=== PATIENT | male | born 1960 | race Asian ===

== ENCOUNTER 2020-10-29 13:42 | Emergency (ER) | payer OTHER ==
[2020-10-29 14:34] VITALS: BMI 21.9
[2020-10-29 15:18] LABS: EPI CELLS 2 /uL (0-25.1); HYALINE CASTS 1 /uL (0-3.1); URINE APPEARANCE CLEAR; URINE BACTERIA 76 /uL (0-1359); URINE BILIRUBIN NEGATIVE (NEGATIVE); URINE COLOR YELLOW; URINE GLUCOSE (UA) 3+ (NEGATIVE); URINE KETONE 1+ (NEGATIVE); URINE LEUK ESTERASE NEGATIVE (NEGATIVE); URINE NITRITE NEGATIVE (NEGATIVE); URINE PROTEIN 1+ (NEGATIVE); URINE RBC 6 /uL (0-23.9); URINE UROBILINOGEN 0.2 mg/dL (0.2-1.0); URINE WBC 3 /uL (0-25.8)
[2020-10-29 15:38] LABS: BASO % 0.5 % (0-2.0); EOS % 0.2 % (0-4.5); HEMATOCRIT 43.2 % (35.4-49); HEMOGLOBIN 14.6 GM/dL (11.7-16.9); LYMPH % 9.6 % (8-40); MCH 33.4 pg (25.7-33.7); MCHC 33.8 g/dl (32.0-35.9); MEAN CELL VOLUME 98.8 fl (80-96); MEAN PLT VOLUME 7.1 fl (7.5-11.1); MONO % 10.6 % (3.8-10.2); NEUT % 79.1 % (42.8-82.8); PLATELET COUNT 313 K/MM3 (134-434); RBC 4.38 M/mm3 (4.00-5.60); RDW 13.6 % (11.9-15.9); WHITE BLOOD COUNT 6.6 K/mm3 (4.0-10.0)
[2020-10-29 15:42] LABS: VENOUS O2 SATURATION 55.6 % (70-80); VENOUS PH 7.407 (7.310-7.410)
[2020-10-29 16:07] LABS: CHLORIDE 95 mmol/L (98-107); POTASSIUM 4.3 mmol/L (3.5-5.1); SODIUM 132 mmol/L (136-145)
[2020-10-29 16:10] LABS: ALBUMIN 4.2 g/dl (3.4-5.0); ANION GAP 8 MMOL/L (8-16); BLOOD UREA NITROGEN 21.8 mg/dL (7-18); CO2 29 mmol/L (21-32); GLUCOSE,RANDOM 341 mg/dL (74-106); MAGNESIUM 1.8 mg/dL (1.8-2.4)
[2020-10-29 16:13] LABS: PHOSPHOROUS 3.4 mg/dL (2.5-4.9); SGOT/AST 51 U/L (15-37); SGPT/ALT 35 U/L (13-61)
[2020-10-29 16:14] LABS: BILIRUBIN,TOTAL 0.6 mg/dL (0.2-1)
[2020-10-29 16:15] LABS: ALK PHOS 95 U/L (45-117)
[2020-10-29 16:35] LABS: OSMOLALITY,SERUM 305 mosm/kg (278-305)
[2020-10-29] MEDS ORDERED: SODIUM CHLORIDE 0.9% 500 ML INFUS.BAG IV ONE (17:08)
[2020-10-29] MEDS ORDERED: LOSARTAN POTASSIUM 25 MG TABLET PO ONE (17:54)
[2020-10-29] MEDS ORDERED: LOSARTAN POTASSIUM 50 MG TABLET ONE (18:16)
[2020-10-29 19:15] VITALS: BP 173/88; PULSE 82; TEMP 98
== END 2020-10-29 19:13 | disposition home or self-care (01) ==
LOC: JER 13:42
DX: E11.65 Type 2 diabetes mellitus with hyperglycemia (principal); I10 Essential (primary) hypertension; R21 Rash and other nonspecific skin eruption
CPT/HCPCS: 36415; 80053; 80307; 81003; 82010; 82140; 82436; 82803; 83605; 83735; 83930; 83935; 84100; 84133; 84300; 85025; 87077; 87086; 93005; 93010; 99284-25

== ENCOUNTER 2021-12-06 21:51 | Inpatient (IN) | payer OTHER ==
[2021-12-07] MEDS ORDERED: OCTREOTIDE ACETATE 50 MCG/1 ML - 1 ML VIAL SQ ONE (00:09)
[2021-12-07] MEDS ORDERED: OCTREOTIDE ACETATE 100 MCG/1 ML ONE (00:37)
[2021-12-07 00:46] LABS: BASO % 0.7 % (0-2.0); EOS % 1.9 % (0-4.5); HEMATOCRIT 34.8 % (35.4-49); HEMOGLOBIN 11.8 GM/dL (11.7-16.9); MCH 32.4 pg (25.7-33.7); MEAN CELL VOLUME 95.3 fl (80-96); MONO % 5.5 % (3.8-10.2); NEUT % 71.9 % (42.8-82.8); PLATELET COUNT 413 10^3/uL (134-434); RBC 3.66 M/mm3 (4.00-5.60); WHITE BLOOD COUNT 8.2 K/mm3 (4.0-10.0)
[2021-12-07 01:09] LABS: BLOOD UREA NITROGEN 19.6 mg/dL (7-18); CALCIUM 9.8 mg/dL (8.5-10.1)
[2021-12-07 01:12] LABS: CREATININE 1.4 mg/dL (0.55-1.3)
[2021-12-07 01:14] LABS: BILIRUBIN,TOTAL 0.2 mg/dL (0.2-1); TOT PROT 8.1 g/dl (6.4-8.2)
[2021-12-07] MEDS ORDERED: SODIUM CHLORIDE 0.9% 1000 ML INFUS.BAG IV ONE (01:36)
[2021-12-07] MEDS ORDERED: THIAMINE HCL 100 MG TABLET (FP) PO ONE (03:36)
[2021-12-07] MEDS ORDERED: THIAMINE HCL 100 MG TABLET (FP) ONE (04:23)
[2021-12-07] MEDS ORDERED: chlordiazePOXIDE HCL 25 MG CAPSULE PO PRN (09:41)
[2021-12-07] MEDS ORDERED: FOLIC ACID 1 MG TABLET (FP) PO SCH (10:00)
[2021-12-07] MEDS ORDERED: MINERAL OIL/PET HY-PHL TOPICAL OINTMENT 454 GM JAR TP SCH (10:00)
[2021-12-07] MEDS ORDERED: amLODIPine BESYLATE 10 MG TABLET (FP) PO SCH (10:00)
[2021-12-07] MEDS ORDERED: LOSARTAN POTASSIUM 50 MG TABLET PO SCH (10:00)
[2021-12-07] MEDS ORDERED: PEG/ELECTROLYTES (NULYTELY) 4,000 ML BOTTLE PO SCH (10:00)
[2021-12-07] MEDS ORDERED: ASPIRIN 81 MG CHEWABLE TABLETS PO SCH (10:00)
[2021-12-07] MEDS ORDERED: NICOTINE 21 MG/24 HOURS TOPICAL PATCH TD SCH (10:00)
[2021-12-07] MEDS ORDERED: amLODIPine BESYLATE 10 MG TABLET (FP) ONE (10:24)
[2021-12-07] MEDS ORDERED: chlordiazePOXIDE HCL 25 MG CAPSULE ONE ×2 (10:24→16:40)
[2021-12-07] MEDS ORDERED: LOSARTAN POTASSIUM 50 MG TABLET ONE (10:24)
[2021-12-07] MEDS ORDERED: ASPIRIN 81 MG CHEWABLE TABLETS ONE (10:24)
[2021-12-07] MEDS ORDERED: FOLIC ACID 1 MG TABLET (FP) ONE (10:24)
[2021-12-07] MEDS ORDERED: POLYETHYLENE GLYCOL (HEALTHYLAX) 3350 17 GM PACKET PO SCH (10:30)
[2021-12-07] MEDS: chlordiazePOXIDE HCL 25 MG CAPSULE PO SCH ×3 (10:46→23:39)
[2021-12-07 11:00] LABS: PH,URINE 7.5 (5.0-8.0); URINE APPEARANCE CLEAR; URINE BILIRUBIN NEGATIVE (NEGATIVE); URINE COLOR YELLOW; URINE GLUCOSE (UA) NEGATIVE (NEGATIVE); URINE KETONE NEGATIVE (NEGATIVE); URINE LEUK ESTERASE NEGATIVE (NEGATIVE); URINE NITRITE NEGATIVE (NEGATIVE); URINE PROTEIN NEGATIVE (NEGATIVE); URINE UROBILINOGEN 0.2 mg/dL (0.2-1.0)
[2021-12-07] MEDS ORDERED: FOLIC ACID INJECTION - 1 MG, THIAMINE HCL 100 MG, MULTIVIT INJECTION ADULT 10 ML in SOD... IVPB ONE (11:00)
[2021-12-07 11:59] LABS: COCAINE, UR NEGATIVE (NEGATIVE)
[2021-12-07 12:00] LABS: METHADONE, UR NEGATIVE (NEGATIVE); PHENCYCLIDINE,URINE NEGATIVE (NEGATIVE); URINE BENZODIAZEPINES NEGATIVE (NEGATIVE)
[2021-12-07 12:02] LABS: OPIATES, URI NEGATIVE (NEGATIVE); URINE AMPHETAMINES NEGATIVE (NEGATIVE); URINE BARBITURATES NEGATIVE (NEGATIVE)
[2021-12-07] MEDS ORDERED: ATORVASTATIN CA 10 MG TABLET (FP) PO SCH (22:00)
[2021-12-07] MEDS ORDERED: ATORVASTATIN CA 10 MG TABLET (FP) ONE (22:51)
[2021-12-07] MEDS ORDERED: HEPARIN NA (PORCINE) 5,000 UNITS/ML 1ML VIAL ONE (22:52)
[2021-12-07] MEDS: HEPARIN NA (PORCINE) 5,000 UNITS/ML 1ML VIAL SQ SCH (22:57)
[2021-12-07] MEDS: hydrALAZINE HCL 10 MG TABLET PO SCH (23:11)
[2021-12-07] MEDS: INSULIN SLIDING SCALE (NOVOLOG) 1 VIAL SQ SCH (23:38)
[2021-12-08 00:12] VITALS: BMI 20.5
[2021-12-08] MEDS ORDERED: chlordiazePOXIDE HCL 25 MG CAPSULE PO PRN (00:21)
[2021-12-08] MEDS ORDERED: chlordiazePOXIDE HCL 25 MG CAPSULE PO SCH (05:00)
[2021-12-08] MEDS: hydrALAZINE HCL 10 MG TABLET PO SCH ×2 (06:49→13:18)
[2021-12-08] MEDS: HEPARIN NA (PORCINE) 5,000 UNITS/ML 1ML VIAL SQ SCH ×3 (06:49→21:31)
[2021-12-08] MEDS: INSULIN SLIDING SCALE (NOVOLOG) 1 VIAL SQ SCH ×4 (06:50→21:32)
[2021-12-08 08:37] LABS: HEMATOCRIT 28.7 % (35.4-49); HEMOGLOBIN 9.9 GM/dL (11.7-16.9); MCH 32.7 pg (25.7-33.7); MCHC 34.4 g/dl (32.0-35.9); MEAN PLT VOLUME 6.3 fl (7.5-11.1); PLATELET COUNT 341 10^3/uL (134-434); RBC 3.02 M/mm3 (4.00-5.60); RDW 14.8 % (11.9-15.9); WHITE BLOOD COUNT 8.1 K/mm3 (4.0-10.0)
[2021-12-08 09:06] LABS: BLOOD UREA NITROGEN 19.3 mg/dL (7-18); MAGNESIUM 1.8 mg/dL (1.8-2.4)
[2021-12-08 09:07] LABS: CALCIUM 9.1 mg/dL (8.5-10.1)
[2021-12-08 09:09] LABS: CREATININE 0.8 mg/dL (0.55-1.3); PHOSPHOROUS 3.8 mg/dL (2.5-4.9)
[2021-12-08 09:11] LABS: BILIRUBIN,TOTAL 0.6 mg/dL (0.2-1)
[2021-12-08] MEDS: LOSARTAN POTASSIUM 50 MG TABLET PO SCH (09:26)
[2021-12-08] MEDS: FOLIC ACID 1 MG TABLET (FP) PO SCH (09:26)
[2021-12-08] MEDS: ASPIRIN 81 MG CHEWABLE TABLETS PO SCH (09:26)
[2021-12-08] MEDS: amLODIPine BESYLATE 10 MG TABLET (FP) PO SCH (09:27)
[2021-12-08] MEDS: POLYETHYLENE GLYCOL (HEALTHYLAX) 3350 17 GM PACKET PO SCH (09:27)
[2021-12-08] MEDS: MINERAL OIL/PET HY-PHL TOPICAL OINTMENT 454 GM JAR TP SCH (09:27)
[2021-12-08] MEDS: NICOTINE 21 MG/24 HOURS TOPICAL PATCH TD SCH (09:27)
[2021-12-08] MEDS: ATORVASTATIN CA 10 MG TABLET (FP) PO SCH (21:31)
[2021-12-09] MEDS ORDERED: chlordiazePOXIDE HCL 25 MG CAPSULE PO SCH (05:00)
[2021-12-09] MEDS: chlordiazePOXIDE HCL 25 MG CAPSULE PO SCH ×4 (05:50→23:10)
[2021-12-09] MEDS: HEPARIN NA (PORCINE) 5,000 UNITS/ML 1ML VIAL SQ SCH ×3 (06:02→22:35)
[2021-12-09] MEDS: INSULIN SLIDING SCALE (NOVOLOG) 1 VIAL SQ SCH ×4 (06:02→22:35)
[2021-12-09 09:01] LABS: BASO % 1.1 % (0-2.0); EOS % 7.5 % (0-4.5); HEMATOCRIT 30.3 % (35.4-49); HEMOGLOBIN 10.5 GM/dL (11.7-16.9); LYMPH % 17.4 % (8-40); MCH 32.9 pg (25.7-33.7); MCHC 34.6 g/dl (32.0-35.9); MEAN CELL VOLUME 95.1 fl (80-96); MEAN PLT VOLUME 6.7 fl (7.5-11.1); MONO % 8.2 % (3.8-10.2); NEUT % 65.8 % (42.8-82.8); PLATELET COUNT 379 10^3/uL (134-434); RBC 3.19 M/mm3 (4.00-5.60); RDW 14.7 % (11.9-15.9)
[2021-12-09 09:45] LABS: BLOOD UREA NITROGEN 17.1 mg/dL (7-18); CALCIUM 9.3 mg/dL (8.5-10.1); MAGNESIUM 1.9 mg/dL (1.8-2.4)
[2021-12-09 09:48] LABS: CREATININE 0.9 mg/dL (0.55-1.3)
[2021-12-09 09:49] LABS: BILIRUBIN,TOTAL 0.5 mg/dL (0.2-1); TOT PROT 6.4 g/dl (6.4-8.2)
[2021-12-09 10:17] LABS: ALBUMIN 1.4 g/dl (3.4-5.0)
[2021-12-09] MEDS: NICOTINE 21 MG/24 HOURS TOPICAL PATCH TD SCH (10:55)
[2021-12-09] MEDS: POLYETHYLENE GLYCOL (HEALTHYLAX) 3350 17 GM PACKET PO SCH (10:56)
[2021-12-09] MEDS: ASPIRIN 81 MG CHEWABLE TABLETS PO SCH (10:58)
[2021-12-09] MEDS: FOLIC ACID 1 MG TABLET (FP) PO SCH (10:58)
[2021-12-09] MEDS: MINERAL OIL/PET HY-PHL TOPICAL OINTMENT 454 GM JAR TP SCH (11:01)
[2021-12-09] MEDS: amLODIPine BESYLATE 10 MG TABLET (FP) PO SCH (11:03)
[2021-12-09] MEDS: LOSARTAN POTASSIUM 50 MG TABLET PO SCH (11:03)
[2021-12-09] MEDS: ATORVASTATIN CA 10 MG TABLET (FP) PO SCH (22:35)
[2021-12-10] MEDS ORDERED: chlordiazePOXIDE HCL 10 MG CAPSULE PO PRN ×2
[2021-12-10] MEDS ORDERED: chlordiazePOXIDE HCL 10 MG CAPSULE PO SCH (05:00)
[2021-12-10] MEDS: HEPARIN NA (PORCINE) 5,000 UNITS/ML 1ML VIAL SQ SCH ×3 (05:57→22:07)
[2021-12-10] MEDS: chlordiazePOXIDE HCL 10 MG CAPSULE PO SCH ×4 (05:58→23:32)
[2021-12-10] MEDS: INSULIN SLIDING SCALE (NOVOLOG) 1 VIAL SQ SCH ×4 (06:03→23:00)
[2021-12-10 08:37] LABS: BASO % 2.9 % (0-2.0); EOS % 6.8 % (0-4.5); HEMATOCRIT 30.6 % (35.4-49); HEMOGLOBIN 10.3 GM/dL (11.7-16.9); LYMPH % 7.6 % (8-40); MCH 32.1 pg (25.7-33.7); MCHC 33.7 g/dl (32.0-35.9); MEAN CELL VOLUME 95.1 fl (80-96); MEAN PLT VOLUME 6.3 fl (7.5-11.1); MONO % 14.7 % (3.8-10.2); PLATELET COUNT 338 10^3/uL (134-434); RBC 3.21 M/mm3 (4.00-5.60); RDW 14.6 % (11.9-15.9); WHITE BLOOD COUNT 9.9 K/mm3 (4.0-10.0)
[2021-12-10 08:56] LABS: CALCIUM 8.8 mg/dL (8.5-10.1)
[2021-12-10 08:57] LABS: BLOOD UREA NITROGEN 18.3 mg/dL (7-18); MAGNESIUM 1.9 mg/dL (1.8-2.4)
[2021-12-10 09:01] LABS: TOT PROT 6.3 g/dl (6.4-8.2)
[2021-12-10 09:02] LABS: BILIRUBIN,TOTAL 0.4 mg/dL (0.2-1)
[2021-12-10 09:09] LABS: ALBUMIN 3.1 g/dl (3.4-5.0)
[2021-12-10] MEDS: MINERAL OIL/PET HY-PHL TOPICAL OINTMENT 454 GM JAR TP SCH (09:38)
[2021-12-10] MEDS: LOSARTAN POTASSIUM 50 MG TABLET PO SCH (09:39)
[2021-12-10] MEDS: NICOTINE 21 MG/24 HOURS TOPICAL PATCH TD SCH (09:39)
[2021-12-10] MEDS: ASPIRIN 81 MG CHEWABLE TABLETS PO SCH (09:39)
[2021-12-10] MEDS: POLYETHYLENE GLYCOL (HEALTHYLAX) 3350 17 GM PACKET PO SCH (09:40)
[2021-12-10] MEDS: FOLIC ACID 1 MG TABLET (FP) PO SCH (09:40)
[2021-12-10] MEDS: amLODIPine BESYLATE 10 MG TABLET (FP) PO SCH (13:07)
[2021-12-10] MEDS: ATORVASTATIN CA 10 MG TABLET (FP) PO SCH (22:07)
[2021-12-11] MEDS ORDERED: chlordiazePOXIDE HCL 10 MG CAPSULE PO SCH (05:00)
[2021-12-11] MEDS: HEPARIN NA (PORCINE) 5,000 UNITS/ML 1ML VIAL SQ SCH ×3 (05:42→22:14)
[2021-12-11] MEDS: chlordiazePOXIDE HCL 10 MG CAPSULE PO SCH ×2 (05:42→16:22)
[2021-12-11] MEDS: INSULIN SLIDING SCALE (NOVOLOG) 1 VIAL SQ SCH ×4 (06:07→22:13)
[2021-12-11 08:29] LABS: BASO % 0.8 % (0-2.0); EOS % 7.7 % (0-4.5); HEMATOCRIT 30.7 % (35.4-49); HEMOGLOBIN 10.5 GM/dL (11.7-16.9); MCH 32.6 pg (25.7-33.7); MCHC 34.2 g/dl (32.0-35.9); MEAN CELL VOLUME 95.3 fl (80-96); MEAN PLT VOLUME 6.9 fl (7.5-11.1); MONO % 12.1 % (3.8-10.2); NEUT % 58.4 % (42.8-82.8); PLATELET COUNT 380 10^3/uL (134-434); RBC 3.22 M/mm3 (4.00-5.60); RDW 14.6 % (11.9-15.9); WHITE BLOOD COUNT 7.5 K/mm3 (4.0-10.0)
[2021-12-11 08:49] LABS: CALCIUM 8.8 mg/dL (8.5-10.1)
[2021-12-11 08:50] LABS: ALBUMIN 3.2 g/dl (3.4-5.0); BLOOD UREA NITROGEN 25.8 mg/dL (7-18)
[2021-12-11 08:52] LABS: BILIRUBIN,TOTAL 0.3 mg/dL (0.2-1); CREATININE 1.1 mg/dL (0.55-1.3); TOT PROT 6.6 g/dl (6.4-8.2)
[2021-12-11] MEDS: MINERAL OIL/PET HY-PHL TOPICAL OINTMENT 454 GM JAR TP SCH (09:27)
[2021-12-11] MEDS: NICOTINE 21 MG/24 HOURS TOPICAL PATCH TD SCH (09:28)
[2021-12-11] MEDS: ASPIRIN 81 MG CHEWABLE TABLETS PO SCH (09:28)
[2021-12-11] MEDS: amLODIPine BESYLATE 10 MG TABLET (FP) PO SCH (09:28)
[2021-12-11] MEDS: POLYETHYLENE GLYCOL (HEALTHYLAX) 3350 17 GM PACKET PO SCH (09:28)
[2021-12-11] MEDS: FOLIC ACID 1 MG TABLET (FP) PO SCH (09:29)
[2021-12-11] MEDS: LOSARTAN POTASSIUM 50 MG TABLET PO SCH (09:29)
[2021-12-11] MEDS: ATORVASTATIN CA 10 MG TABLET (FP) PO SCH (22:14)
[2021-12-12] MEDS ORDERED: chlordiazePOXIDE HCL 10 MG CAPSULE PO ONE ×2 (05:00)
[2021-12-12] MEDS: HEPARIN NA (PORCINE) 5,000 UNITS/ML 1ML VIAL SQ SCH (06:01)
[2021-12-12] MEDS: INSULIN SLIDING SCALE (NOVOLOG) 1 VIAL SQ SCH ×2 (06:04→10:10)
[2021-12-12 09:28] LABS: BASO % 0.7 % (0-2.0); EOS % 9.5 % (0-4.5); HEMATOCRIT 30.1 % (35.4-49); HEMOGLOBIN 10.5 GM/dL (11.7-16.9); LYMPH % 23.3 % (8-40); MCHC 34.8 g/dl (32.0-35.9); MEAN PLT VOLUME 6.3 fl (7.5-11.1); MONO % 13.5 % (3.8-10.2); PLATELET COUNT 399 10^3/uL (134-434); RBC 3.17 M/mm3 (4.00-5.60); RDW 14.7 % (11.9-15.9); WHITE BLOOD COUNT 7.7 K/mm3 (4.0-10.0)
[2021-12-12] MEDS: FOLIC ACID 1 MG TABLET (FP) PO SCH (09:28)
[2021-12-12] MEDS: NICOTINE 21 MG/24 HOURS TOPICAL PATCH TD SCH (09:28)
[2021-12-12] MEDS: ASPIRIN 81 MG CHEWABLE TABLETS PO SCH (09:28)
[2021-12-12] MEDS: amLODIPine BESYLATE 10 MG TABLET (FP) PO SCH (09:28)
[2021-12-12] MEDS: LOSARTAN POTASSIUM 50 MG TABLET PO SCH ×2 (09:30→11:39)
[2021-12-12] MEDS: POLYETHYLENE GLYCOL (HEALTHYLAX) 3350 17 GM PACKET PO SCH (09:32)
[2021-12-12] MEDS: MINERAL OIL/PET HY-PHL TOPICAL OINTMENT 454 GM JAR TP SCH (09:34)
[2021-12-12 09:47] LABS: ALBUMIN 3.4 g/dl (3.4-5.0); CALCIUM 9.1 mg/dL (8.5-10.1)
[2021-12-12 09:48] LABS: BLOOD UREA NITROGEN 25.7 mg/dL (7-18)
[2021-12-12 09:51] LABS: CREATININE 1.1 mg/dL (0.55-1.3)
[2021-12-12 09:52] LABS: BILIRUBIN,TOTAL 0.5 mg/dL (0.2-1); TOT PROT 6.8 g/dl (6.4-8.2)
[2021-12-12 11:43] VITALS: BP 128/51; PULSE 48; TEMP 98.1
[2021-12-13 10:09] LABS: SARS-CoV-2 NAA Not Detected (Not Detected)
== END 2021-12-12 14:12 | disposition home or self-care (01) | DRG 420 ==
LOC: JER 21:51 → JERBED 12-07 01:35 → INTOOBSV 12-07 01:35 → J7W 12-07 23:23 → OBSVTOIN 12-08 15:13
PROVIDERS: ADMIT Hospitalist; ATTEND Nurse Practitioner Family
DX: E11.649 Type 2 diabetes mellitus with hypoglycemia without coma (principal); I10 Essential (primary) hypertension; E78.5 Hyperlipidemia, unspecified; N17.9 Acute kidney failure, unspecified; E46 Unspecified protein-calorie malnutrition; Z79.84 Long term (current) use of oral hypoglycemic drugs; F10.10 Alcohol abuse, uncomplicated; R21 Rash and other nonspecific skin eruption; F17.210 Nicotine dependence, cigarettes, uncomplicated; G93.41 Metabolic encephalopathy; Z68.20 Body mass index [BMI] 20.0-20.9, adult
CPT/HCPCS: 36415; 70450-TC; 71045-TC-FY; 76775-TC; 80053; 80307; 81003; 82550; 82962; 83036; 83735; 84100; 84443; 85025; 85027; 93005; 93010; 97116-GP; 97161-GP; 99285-25; C9803-CS; G0378; J1644; U0003; U0005

== ENCOUNTER 2022-10-13 21:23 | Inpatient (IN) | payer OTHER ==
[2022-10-13] MEDS ORDERED: SODIUM CHLORIDE 1,000 ML IV STA (22:29)
[2022-10-13 23:11] LABS: BASO % 0.7 % (0-2.0); HEMATOCRIT 34.7 % (35.4-49); HEMOGLOBIN 11.9 GM/dL (11.7-16.9); MCH 32.8 pg (25.7-33.7); MCHC 34.4 g/dl (32.0-35.9); MEAN CELL VOLUME 95.1 fl (80-96); MEAN PLT VOLUME 6.8 fl (7.5-11.1); MONO % 8.1 % (3.8-10.2); NEUT % 79.2 % (42.8-82.8); PLATELET COUNT 540 10^3/uL (134-434); RBC 3.65 M/mm3 (4.00-5.60); RDW 13.3 % (11.9-15.9); WHITE BLOOD COUNT 12.5 K/mm3 (4.0-10.0)
[2022-10-13 23:16] LABS: INR 0.94 (0.83-1.09); PROTHROMBIN TIME (PATIENT) 10.9 SEC (9.7-13.0)
[2022-10-13 23:19] LABS: ACTIVATED PTT 32.6 SECONDS (25.2-36.5)
[2022-10-13 23:37] LABS: ALBUMIN 3.6 g/dl (3.4-5.0); BLOOD UREA NITROGEN 28.2 mg/dL (7-18); CALCIUM 9.8 mg/dL (8.5-10.1)
[2022-10-13 23:40] LABS: CREATININE 1.1 mg/dL (0.55-1.3); PHOSPHOROUS 4.2 mg/dL (2.5-4.9)
[2022-10-13 23:42] LABS: BILIRUBIN,TOTAL 0.3 mg/dL (0.2-1); TOT PROT 7.1 g/dl (6.4-8.2)
[2022-10-14 07:03] LABS: EPI CELLS 4 /uL (0-25.1); HYALINE CASTS 1 /uL (0-3.1); URINE APPEARANCE CLEAR; URINE BACTERIA 3 /uL (0-1359); URINE BILIRUBIN NEGATIVE (NEGATIVE); URINE COLOR YELLOW; URINE GLUCOSE (UA) 1+ (NEGATIVE); URINE KETONE NEGATIVE (NEGATIVE); URINE LEUK ESTERASE NEGATIVE (NEGATIVE); URINE NITRITE NEGATIVE (NEGATIVE); URINE PROTEIN NEGATIVE (NEGATIVE); URINE RBC 548 /uL (0-23.9); URINE UROBILINOGEN 0.2 mg/dL (0.2-1.0); URINE WBC 7 /uL (0-25.8)
[2022-10-14] MEDS ORDERED: THIAMINE HCL 100 MG TABLET (FP) PO SCH (10:00)
[2022-10-14] MEDS ORDERED: FOLIC ACID 1 MG TABLET (FP) PO SCH (10:00)
[2022-10-14] MEDS ORDERED: MUPIROCIN 2% TOPICAL OINTMENT FOR DECOLONIZATION NS SCH (10:00)
[2022-10-14 10:54] VITALS: BMI 18.8
[2022-10-14 11:08] LABS: HEMATOCRIT 36.2 % (35.4-49); HEMOGLOBIN 12.2 GM/dL (11.7-16.9); MCH 31.9 pg (25.7-33.7); MCHC 33.8 g/dl (32.0-35.9); MEAN CELL VOLUME 94.6 fl (80-96); MEAN PLT VOLUME 6.4 fl (7.5-11.1); PLATELET COUNT 576 10^3/uL (134-434); RBC 3.83 M/mm3 (4.00-5.60); WHITE BLOOD COUNT 11.4 K/mm3 (4.0-10.0)
[2022-10-14 11:33] LABS: BLOOD UREA NITROGEN 21.3 mg/dL (7-18); CALCIUM 9.7 mg/dL (8.5-10.1); MAGNESIUM 2.1 mg/dL (1.8-2.4)
[2022-10-14 11:36] LABS: CREATININE 0.9 mg/dL (0.55-1.3); PHOSPHOROUS 3.4 mg/dL (2.5-4.9)
[2022-10-14] MEDS: LOSARTAN POTASSIUM 50 MG TABLET PO SCH (15:45)
[2022-10-14] MEDS: ATORVASTATIN CA 10 MG TABLET (FP) PO SCH (15:45)
[2022-10-14] MEDS: amLODIPine BESYLATE 10 MG TABLET (FP) PO SCH (15:45)
[2022-10-14] MEDS: INSULIN SLIDING SCALE (NOVOLOG) 1 VIAL SQ SCH (16:28)
[2022-10-14] MEDS ORDERED: diphenhydrAMINE HCL 25 MG CAPSULE (FP) PO ONE (18:58)
[2022-10-14] MEDS ORDERED: CHLORHEXIDINE GLUCONATE 4% CLEANSER FOR DECOLONIZATION TP SCH (22:00)
[2022-10-15] MEDS: INSULIN SLIDING SCALE (NOVOLOG) 1 VIAL SQ SCH ×3 (06:41→17:00)
[2022-10-15] MEDS: FOLIC ACID 1 MG TABLET (FP) PO SCH (09:17)
[2022-10-15] MEDS: amLODIPine BESYLATE 10 MG TABLET (FP) PO SCH (09:18)
[2022-10-15] MEDS: ATORVASTATIN CA 10 MG TABLET (FP) PO SCH (09:18)
[2022-10-15] MEDS: LOSARTAN POTASSIUM 50 MG TABLET PO SCH (09:18)
[2022-10-15] MEDS ORDERED: THIAMINE HCL 100 MG TABLET (FP) PO SCH (10:00)
[2022-10-15 10:05] LABS: BASO % 1.2 % (0-2.0); EOS % 7.5 % (0-4.5); HEMATOCRIT 36.3 % (35.4-49); HEMOGLOBIN 12.4 GM/dL (11.7-16.9); LYMPH % 13.2 % (8-40); MCHC 34.1 g/dl (32.0-35.9); MEAN CELL VOLUME 93.8 fl (80-96); MEAN PLT VOLUME 7.2 fl (7.5-11.1); MONO % 9.8 % (3.8-10.2); NEUT % 68.3 % (42.8-82.8); PLATELET COUNT 567 10^3/uL (134-434); RBC 3.87 M/mm3 (4.00-5.60); RDW 13.6 % (11.9-15.9); WHITE BLOOD COUNT 10.2 K/mm3 (4.0-10.0)
[2022-10-15 10:16] LABS: PROTHROMBIN TIME (PATIENT) 11.6 SEC (9.7-13.0)
[2022-10-15 10:23] LABS: CALCIUM 9.7 mg/dL (8.5-10.1)
[2022-10-15 10:27] LABS: MAGNESIUM 2.3 mg/dL (1.8-2.4)
[2022-10-15 10:28] LABS: BLOOD UREA NITROGEN 27.9 mg/dL (7-18)
[2022-10-15 10:29] LABS: ALBUMIN 3.6 g/dl (3.4-5.0)
[2022-10-15 10:30] LABS: CREATININE 1.1 mg/dL (0.55-1.3); PHOSPHOROUS 3.8 mg/dL (2.5-4.9)
[2022-10-15 10:36] LABS: BILIRUBIN,TOTAL 0.4 mg/dL (0.2-1)
[2022-10-15] MEDS: THIAMINE HCL 200 MG/2 ML VIAL IVPB SCH ×2 (13:46→21:00)
[2022-10-16] MEDS: INSULIN SLIDING SCALE (NOVOLOG) 1 VIAL SQ SCH ×3 (06:11→17:16)
[2022-10-16] MEDS: THIAMINE HCL 200 MG/2 ML VIAL IVPB SCH ×3 (06:12→22:56)
[2022-10-16 09:26] LABS: HEMATOCRIT 32.3 % (35.4-49); HEMOGLOBIN 10.6 GM/dL (11.7-16.9); MCH 31.4 pg (25.7-33.7); MEAN CELL VOLUME 95.1 fl (80-96); PLATELET COUNT 538 10^3/uL (134-434); RBC 3.39 M/mm3 (4.00-5.60); RDW 13.4 % (11.9-15.9); WHITE BLOOD COUNT 11.3 K/mm3 (4.0-10.0)
[2022-10-16] MEDS: FOLIC ACID 1 MG TABLET (FP) PO SCH (09:28)
[2022-10-16] MEDS: LOSARTAN POTASSIUM 50 MG TABLET PO SCH (09:28)
[2022-10-16] MEDS: amLODIPine BESYLATE 10 MG TABLET (FP) PO SCH (09:28)
[2022-10-16 09:51] LABS: CALCIUM 8.9 mg/dL (8.5-10.1)
[2022-10-16 09:52] LABS: ALBUMIN 3.1 g/dl (3.4-5.0); BLOOD UREA NITROGEN 21.8 mg/dL (7-18)
[2022-10-16 09:55] LABS: BILIRUBIN,TOTAL 0.4 mg/dL (0.2-1); CREATININE 0.9 mg/dL (0.55-1.3)
[2022-10-16 09:56] LABS: TOT PROT 6.1 g/dl (6.4-8.2)
[2022-10-16] MEDS: ATORVASTATIN CA 10 MG TABLET (FP) PO SCH (22:56)
[2022-10-17] MEDS: THIAMINE HCL 200 MG/2 ML VIAL IVPB SCH ×3 (05:53→21:52)
[2022-10-17] MEDS: INSULIN SLIDING SCALE (NOVOLOG) 1 VIAL SQ SCH ×3 (06:04→17:18)
[2022-10-17 11:25] LABS: BASO % 0.9 % (0-2.0); EOS % 6.6 % (0-4.5); HEMATOCRIT 31.9 % (35.4-49); HEMOGLOBIN 10.8 GM/dL (11.7-16.9); LYMPH % 11.2 % (8-40); MCH 31.8 pg (25.7-33.7); MCHC 33.8 g/dl (32.0-35.9); MEAN CELL VOLUME 94.1 fl (80-96); MEAN PLT VOLUME 6.6 fl (7.5-11.1); MONO % 10.5 % (3.8-10.2); NEUT % 70.8 % (42.8-82.8); PLATELET COUNT 488 10^3/uL (134-434); RBC 3.39 M/mm3 (4.00-5.60); RDW 13.5 % (11.9-15.9); RETICULOCYTES 1.59 % (0.5-1.5); WHITE BLOOD COUNT 9.3 K/mm3 (4.0-10.0)
[2022-10-17 11:46] LABS: BLOOD UREA NITROGEN 17.4 mg/dL (7-18); CALCIUM 8.8 mg/dL (8.5-10.1)
[2022-10-17 11:50] LABS: CREATININE 0.9 mg/dL (0.55-1.3)
[2022-10-17] MEDS: LOSARTAN POTASSIUM 50 MG TABLET PO SCH (11:50)
[2022-10-17] MEDS: FOLIC ACID 1 MG TABLET (FP) PO SCH (11:51)
[2022-10-17] MEDS: amLODIPine BESYLATE 10 MG TABLET (FP) PO SCH (11:51)
[2022-10-17] MEDS: MULTIVITAMINS (DAILY MVI) TABLET (FP) PO SCH (11:51)
[2022-10-17] MEDS: ATORVASTATIN CA 10 MG TABLET (FP) PO SCH (21:52)
[2022-10-18] MEDS: THIAMINE HCL 200 MG/2 ML VIAL IVPB SCH (06:47)
[2022-10-18] MEDS: INSULIN SLIDING SCALE (NOVOLOG) 1 VIAL SQ SCH ×3 (06:53→16:53)
[2022-10-18] MEDS: FOLIC ACID 1 MG TABLET (FP) PO SCH (10:24)
[2022-10-18] MEDS: LOSARTAN POTASSIUM 50 MG TABLET PO SCH (10:24)
[2022-10-18] MEDS: MULTIVITAMINS (DAILY MVI) TABLET (FP) PO SCH (10:25)
[2022-10-18] MEDS: amLODIPine BESYLATE 10 MG TABLET (FP) PO SCH (10:25)
[2022-10-18 10:48] LABS: HEMATOCRIT 31.1 % (35.4-49); HEMOGLOBIN 11.1 GM/dL (11.7-16.9); MCH 33.5 pg (25.7-33.7); MCHC 35.6 g/dl (32.0-35.9); MEAN CELL VOLUME 94.2 fl (80-96); MEAN PLT VOLUME 6.4 fl (7.5-11.1); PLATELET COUNT 459 10^3/uL (134-434); RDW 13.6 % (11.9-15.9); WHITE BLOOD COUNT 8.7 K/mm3 (4.0-10.0)
[2022-10-18 11:10] LABS: CALCIUM 8.8 mg/dL (8.5-10.1)
[2022-10-18 11:11] LABS: BLOOD UREA NITROGEN 14.6 mg/dL (7-18); MAGNESIUM 1.9 mg/dL (1.8-2.4)
[2022-10-18 11:12] LABS: PHOSPHOROUS 3.6 mg/dL (2.5-4.9)
[2022-10-18 11:13] LABS: CREATININE 0.9 mg/dL (0.55-1.3)
[2022-10-18 12:36] LABS: ERYTHROCYTE SEDIMENTATION RATE 67 mm/hr (0-20)
[2022-10-18] MEDS: ATORVASTATIN CA 10 MG TABLET (FP) PO SCH (22:22)
[2022-10-18] MEDS: MINERAL OIL/PET HY-PHL TOPICAL OINTMENT 454 GM JAR TP SCH (22:24)
[2022-10-19] MEDS: INSULIN SLIDING SCALE (NOVOLOG) 1 VIAL SQ SCH ×3 (08:09→16:49)
[2022-10-19 08:20] LABS: EOS % 13.3 % (0-4.5); HEMATOCRIT 33.2 % (35.4-49); HEMOGLOBIN 11.4 GM/dL (11.7-16.9); LYMPH % 17.6 % (8-40); MCH 32.5 pg (25.7-33.7); MCHC 34.4 g/dl (32.0-35.9); MEAN CELL VOLUME 94.3 fl (80-96); MEAN PLT VOLUME 6.7 fl (7.5-11.1); MONO % 8.8 % (3.8-10.2); NEUT % 59.3 % (42.8-82.8); PLATELET COUNT 522 10^3/uL (134-434); RBC 3.52 M/mm3 (4.00-5.60); RDW 13.4 % (11.9-15.9); WHITE BLOOD COUNT 9.4 K/mm3 (4.0-10.0)
[2022-10-19 08:36] LABS: CALCIUM 9.5 mg/dL (8.5-10.1)
[2022-10-19 08:37] LABS: BLOOD UREA NITROGEN 22.4 mg/dL (7-18); MAGNESIUM 2.1 mg/dL (1.8-2.4)
[2022-10-19 08:41] LABS: CREATININE 0.9 mg/dL (0.55-1.3); PHOSPHOROUS 4.6 mg/dL (2.5-4.9)
[2022-10-19] MEDS: LOSARTAN POTASSIUM 50 MG TABLET PO SCH (09:07)
[2022-10-19] MEDS: FOLIC ACID 1 MG TABLET (FP) PO SCH (09:07)
[2022-10-19] MEDS: MINERAL OIL/PET HY-PHL TOPICAL OINTMENT 454 GM JAR TP SCH ×2 (09:07→22:08)
[2022-10-19] MEDS: MULTIVITAMINS (DAILY MVI) TABLET (FP) PO SCH (09:07)
[2022-10-19] MEDS: amLODIPine BESYLATE 10 MG TABLET (FP) PO SCH (09:10)
[2022-10-19] MEDS: THIAMINE HCL 200 MG/2 ML VIAL IVPB SCH (09:10)
[2022-10-19] MEDS ORDERED: THIAMINE HCL 200 MG/2 ML VIAL IVPB SCH (10:00)
[2022-10-19] MEDS: diphenhydrAMINE HCL 25 MG CAPSULE (FP) PO PRN (22:07)
[2022-10-19] MEDS: ATORVASTATIN CA 10 MG TABLET (FP) PO SCH (22:07)
[2022-10-20] MEDS: metFORMIN HCL 500 MG TABLET (FP) PO SCH ×2 (06:12→16:55)
[2022-10-20] MEDS: INSULIN SLIDING SCALE (NOVOLOG) 1 VIAL SQ SCH ×3 (06:12→16:59)
[2022-10-20 09:08] LABS: HEMATOCRIT 33.3 % (35.4-49); HEMOGLOBIN 11.4 GM/dL (11.7-16.9); MCH 32.3 pg (25.7-33.7); MCHC 34.3 g/dl (32.0-35.9); MEAN CELL VOLUME 94.2 fl (80-96); MEAN PLT VOLUME 6.7 fl (7.5-11.1); PLATELET COUNT 535 10^3/uL (134-434); RBC 3.53 M/mm3 (4.00-5.60); RDW 13.2 % (11.9-15.9); WHITE BLOOD COUNT 9.2 K/mm3 (4.0-10.0)
[2022-10-20] MEDS: MINERAL OIL/PET HY-PHL TOPICAL OINTMENT 454 GM JAR TP SCH ×2 (09:12→21:21)
[2022-10-20] MEDS: MULTIVITAMINS (DAILY MVI) TABLET (FP) PO SCH (09:13)
[2022-10-20] MEDS: FOLIC ACID 1 MG TABLET (FP) PO SCH (09:13)
[2022-10-20] MEDS: LOSARTAN POTASSIUM 50 MG TABLET PO SCH (09:13)
[2022-10-20] MEDS: amLODIPine BESYLATE 10 MG TABLET (FP) PO SCH (09:13)
[2022-10-20] MEDS: THIAMINE HCL 200 MG/2 ML VIAL IVPB SCH (09:18)
[2022-10-20 09:36] LABS: CALCIUM 9.5 mg/dL (8.5-10.1)
[2022-10-20 09:38] LABS: BLOOD UREA NITROGEN 27.6 mg/dL (7-18); MAGNESIUM 2.1 mg/dL (1.8-2.4)
[2022-10-20 09:41] LABS: PHOSPHOROUS 4.2 mg/dL (2.5-4.9)
[2022-10-20] MEDS: ATORVASTATIN CA 10 MG TABLET (FP) PO SCH (21:21)
[2022-10-20] MEDS: diphenhydrAMINE HCL 25 MG CAPSULE (FP) PO PRN (21:23)
[2022-10-21] MEDS: metFORMIN HCL 500 MG TABLET (FP) PO SCH (06:20)
[2022-10-21] MEDS: INSULIN SLIDING SCALE (NOVOLOG) 1 VIAL SQ SCH ×3 (06:21→16:25)
[2022-10-21] MEDS: MULTIVITAMINS (DAILY MVI) TABLET (FP) PO SCH (09:20)
[2022-10-21] MEDS: FOLIC ACID 1 MG TABLET (FP) PO SCH (09:20)
[2022-10-21] MEDS: THIAMINE HCL 200 MG/2 ML VIAL IVPB SCH (09:20)
[2022-10-21] MEDS: LOSARTAN POTASSIUM 50 MG TABLET PO SCH (09:20)
[2022-10-21] MEDS: amLODIPine BESYLATE 10 MG TABLET (FP) PO SCH (09:20)
[2022-10-21] MEDS: MINERAL OIL/PET HY-PHL TOPICAL OINTMENT 454 GM JAR TP SCH ×2 (09:41→21:16)
[2022-10-21 10:51] LABS: BASO % 0.8 % (0-2.0); EOS % 9.6 % (0-4.5); HEMATOCRIT 36.4 % (35.4-49); MCH 31.3 pg (25.7-33.7); MEAN CELL VOLUME 94.8 fl (80-96); MEAN PLT VOLUME 6.6 fl (7.5-11.1); MONO % 8.2 % (3.8-10.2); NEUT % 66.4 % (42.8-82.8); PLATELET COUNT 570 10^3/uL (134-434); RBC 3.84 M/mm3 (4.00-5.60); RDW 13.5 % (11.9-15.9); WHITE BLOOD COUNT 11.1 K/mm3 (4.0-10.0)
[2022-10-21] MEDS ORDERED: INSULIN (NOVOLOG) ASPART 100 UNITS/ML 10ML VIAL ONE (11:23)
[2022-10-21 11:33] LABS: ALBUMIN 3.4 g/dl (3.4-5.0); CALCIUM 9.8 mg/dL (8.5-10.1)
[2022-10-21 11:34] LABS: BLOOD UREA NITROGEN 26.9 mg/dL (7-18); MAGNESIUM 1.9 mg/dL (1.8-2.4)
[2022-10-21 11:36] LABS: PHOSPHOROUS 4.1 mg/dL (2.5-4.9)
[2022-10-21 11:37] LABS: CREATININE 1.2 mg/dL (0.55-1.3)
[2022-10-21 11:38] LABS: TOT PROT 6.9 g/dl (6.4-8.2)
[2022-10-21 11:40] LABS: BILIRUBIN,TOTAL 0.3 mg/dL (0.2-1)
[2022-10-21] MEDS ORDERED: metFORMIN HCL 500 MG TABLET (FP) PO SCH (11:55)
[2022-10-22] MEDS: INSULIN SLIDING SCALE (NOVOLOG) 1 VIAL SQ SCH ×3 (06:24→17:31)
[2022-10-22 07:45] LABS: HEMATOCRIT 31.6 % (35.4-49); HEMOGLOBIN 10.9 GM/dL (11.7-16.9); MCH 32.3 pg (25.7-33.7); MCHC 34.4 g/dl (32.0-35.9); MEAN CELL VOLUME 93.8 fl (80-96); MEAN PLT VOLUME 6.6 fl (7.5-11.1); PLATELET COUNT 497 10^3/uL (134-434); RBC 3.37 M/mm3 (4.00-5.60); RDW 13.4 % (11.9-15.9); WHITE BLOOD COUNT 10.8 K/mm3 (4.0-10.0)
[2022-10-22 08:14] LABS: BLOOD UREA NITROGEN 29.4 mg/dL (7-18); CALCIUM 9.1 mg/dL (8.5-10.1); MAGNESIUM 1.8 mg/dL (1.8-2.4)
[2022-10-22 08:18] LABS: CREATININE 1.1 mg/dL (0.55-1.3)
[2022-10-22] MEDS: MULTIVITAMINS (DAILY MVI) TABLET (FP) PO SCH (09:32)
[2022-10-22] MEDS: MINERAL OIL/PET HY-PHL TOPICAL OINTMENT 454 GM JAR TP SCH ×2 (09:32→22:11)
[2022-10-22] MEDS: THIAMINE HCL 200 MG/2 ML VIAL IVPB SCH (09:32)
[2022-10-22] MEDS: FOLIC ACID 1 MG TABLET (FP) PO SCH (09:32)
[2022-10-22] MEDS ORDERED: sitaGLIPtin PHOSPHATE 50 MG TABLET PO SCH (10:00)
[2022-10-22] MEDS ORDERED: INSULIN (NOVOLOG) ASPART 100 UNITS/ML 10ML VIAL ONE (18:48)
[2022-10-23] MEDS: INSULIN SLIDING SCALE (NOVOLOG) 1 VIAL SQ SCH ×3 (06:20→16:39)
[2022-10-23] MEDS: LOSARTAN POTASSIUM 50 MG TABLET PO SCH (09:21)
[2022-10-23] MEDS: FOLIC ACID 1 MG TABLET (FP) PO SCH (09:21)
[2022-10-23] MEDS: MULTIVITAMINS (DAILY MVI) TABLET (FP) PO SCH (09:22)
[2022-10-23] MEDS: THIAMINE HCL 200 MG/2 ML VIAL IVPB SCH (09:22)
[2022-10-23] MEDS: MINERAL OIL/PET HY-PHL TOPICAL OINTMENT 454 GM JAR TP SCH (09:22)
[2022-10-23] MEDS ORDERED: amLODIPine BESYLATE 10 MG TABLET (FP) PO SCH (10:00)
[2022-10-23 14:18] VITALS: BP 109/59; PULSE 79; RESP 18; TEMP 98.3
== END 2022-10-23 18:29 | DRG 55 ==
LOC: JER 21:23 → JERBED 10-14 02:51 → JICU 10-14 08:29 → J6S 10-15 04:06
PROVIDERS: ADMIT Internal Medicine Pulmonary Disease; ATTEND Internal Medicine
DX: S06.6X0A Traumatic subarachnoid hemorrhage without loss of consciousness, initial encounter (principal); E11.65 Type 2 diabetes mellitus with hyperglycemia; G95.20 Unspecified cord compression; G96.08 Other cranial cerebrospinal fluid leak; D64.9 Anemia, unspecified; E51.2 Wernicke's encephalopathy; F10.20 Alcohol dependence, uncomplicated; L81.9 Disorder of pigmentation, unspecified; R21 Rash and other nonspecific skin eruption; R27.0 Ataxia, unspecified; E78.5 Hyperlipidemia, unspecified; W19.XXXA Unspecified fall, initial encounter; Y93.9 Activity, unspecified; Y92.89 Other specified places as the place of occurrence of the external cause; Y99.9 Unspecified external cause status; I10 Essential (primary) hypertension; F17.210 Nicotine dependence, cigarettes, uncomplicated
CPT/HCPCS: 0241U-QW; 36415; 70450-TC; 70551-TC; 71046-TC-FY; 72125-TC; 72141-TC; 80048; 80053; 81003; 82140; 82533; 82550; 82607; 82728; 82746; 82962; 83036; 83540; 83550; 83690; 83735; 84100; 84443; 84484; 85025; 85027; 85045; 85610; 85651; 85730; 87086; 93005; 93010; 97116-GP; 97162-GP; 99285-25; C9803-CS; U0003; U0005

== ENCOUNTER 2023-01-23 21:24 | Emergency (ER) | payer OTHER ==
[2023-01-23 21:33] VITALS: TEMP 97.9
[2023-01-23 22:17] LABS: EOS % 2.9 % (0-4.5); HEMATOCRIT 28.5 % (35.4-49); HEMOGLOBIN 9.7 GM/dL (11.7-16.9); LYMPH % 15.7 % (8-40); MCHC 34.2 g/dl (32.0-35.9); MEAN CELL VOLUME 87.9 fl (80-96); MEAN PLT VOLUME 5.9 fl (7.5-11.1); MONO % 7.3 % (3.8-10.2); NEUT % 73.1 % (42.8-82.8); PLATELET COUNT 429 10^3/uL (134-434); RBC 3.25 M/mm3 (4.00-5.60); RDW 13.7 % (11.9-15.9); WHITE BLOOD COUNT 8.8 K/mm3 (4.0-10.0)
[2023-01-23 22:27] LABS: URINE APPEARANCE CLEAR; URINE BILIRUBIN NEGATIVE (NEGATIVE); URINE COLOR YELLOW; URINE GLUCOSE (UA) NEGATIVE (NEGATIVE); URINE KETONE NEGATIVE (NEGATIVE); URINE LEUK ESTERASE NEGATIVE (NEGATIVE); URINE NITRITE NEGATIVE (NEGATIVE); URINE PROTEIN TRACE (NEGATIVE); URINE UROBILINOGEN 0.2 mg/dL (0.2-1.0)
[2023-01-23 22:32] LABS: POTASSIUM 4.8 mmol/L (3.5-5.1)
[2023-01-23 22:35] LABS: ALBUMIN 4.1 g/dl (3.4-5.0); BLOOD UREA NITROGEN 31.9 mg/dL (7-18); MAGNESIUM 1.7 mg/dL (1.8-2.4)
[2023-01-23 22:38] LABS: CREATININE 1.1 mg/dL (0.55-1.3)
[2023-01-23 22:40] LABS: TOT PROT 7.8 g/dl (6.4-8.2)
[2023-01-23 22:54] LABS: BILIRUBIN,TOTAL 0.3 mg/dL (0.2-1)
[2023-01-23 23:27] VITALS: BP 163/88; PULSE 66; RESP 18
== END 2023-01-24 01:21 | disposition short-term general hospital (02) ==
LOC: JER 21:24
DX: S06.5X0A Traumatic subdural hemorrhage without loss of consciousness, initial encounter (principal); E11.65 Type 2 diabetes mellitus with hyperglycemia; R41.0 Disorientation, unspecified; E87.1 Hypo-osmolality and hyponatremia; W18.11XA Fall from or off toilet without subsequent striking against object, initial encounter; Y93.9 Activity, unspecified; Y92.002 Bathroom of unspecified non-institutional (private) residence as the place of occurrence of the external cause; Z20.822 Contact with and (suspected) exposure to COVID-19
CPT/HCPCS: 36415; 70450-TC; 71045-TC-FY; 72125-TC; 72170-TC-FY; 80053; 81003; 82962; 83735; 84484; 85025; 87086; 93005; 93010; 99285-25; C9803-CS; U0003; U0005

== ENCOUNTER 2024-01-08 04:00 | Day surgery (SDC) | payer OTHER ==
[2023-12-24 10:14] VITALS: BMI 19.6
[2024-01-08] MEDS ORDERED: BUPIVACAINE HCL/PF 0.5% (5MG/ML) 10 ML VIAL ONE (07:40)
[2024-01-08] MEDS ORDERED: LIDOCAINE HCL 1%, 10 MG/ML (20ML VIAL) ONE (07:40)
[2024-01-08] MEDS ORDERED: LIDOCAINE HCL/PF 2% SDV 5ML VIAL ONE (08:14)
[2024-01-08] MEDS ORDERED: PROPOFOL 20 ML ONE (08:14)
[2024-01-08] MEDS ORDERED: FENTANYL CITRATE/PF 50 MCG/ML VIAL ONE (08:14)
[2024-01-08] MEDS ORDERED: MIDAZOLAM HCL 2 MG/2 ML SINGLE DOSE VIAL ONE (08:16)
[2024-01-08] MEDS ORDERED: ceFAZolin SODIUM 1 GM VIAL ONE (08:46)
[2024-01-08] MEDS: ceFAZolin SODIUM 1 GM VIAL IVPB ONE (08:47)
[2024-01-08] MEDS ORDERED: PROPOFOL 40 ML ONE (08:49)
[2024-01-08] MEDS ORDERED: KETOROLAC TROMETHAMINE 30 MG/1 ML VIAL ONE (08:52)
[2024-01-08] MEDS ORDERED: ONDANSETRON 4 MG/2 ML VIAL ONE (08:52)
[2024-01-08] MEDS: BUPIVACAINE HCL/PF 0.5% (5MG/ML) 10 ML VIAL IJ ONE ×3 (09:05)
[2024-01-08] MEDS: LIDOCAINE HCL 1%, 10 MG/ML (20ML VIAL) INF ONE ×3 (09:05)
[2024-01-08 09:56] VITALS: RESP 20
[2024-01-08 11:15] VITALS: BP 107/62; PULSE 60; TEMP 97.5
== END 2024-01-08 10:55 | disposition home or self-care (01) ==
LOC: JASU-SURG 04:00
PROVIDERS: ATTEND Surgery
PROC: 0JB60ZX Excision of Chest Subcutaneous Tissue and Fascia, Open Approach, Diagnostic (ICD-10-PCS; principal; 2024-01-08 08:30)
DX: L72.3 Sebaceous cyst (principal)
CPT/HCPCS: 82962; 88304-TC